=== PATIENT | female | born 1980 | race Two or more races ===

== ENCOUNTER 2024-04-20 11:13 | Emergency (ER) | payer OTHER ==
[~2024-04-20] VITALS: Ht 162.6 cm; Wt 70.8 kg
[2024-04-20] MEDS ORDERED: POVIDONE-IODINE 3 EA MED..SWAB TOP ONE (13:45)
[2024-04-20] MEDS ORDERED: LIDOCAINE HCL 1% 2ML VIAL IJ ONE (13:45)
[2024-04-20] MEDS ORDERED: TETANUS & DIPHTHERIA TOX,ADULT 0.5 ML VIAL IM ONE (15:15)
== END 2024-04-20 15:12 | disposition home or self-care (01) ==
LOC: ER 11:15
DX: S61.221A Laceration with foreign body of left index finger without damage to nail, initial encounter (principal); W25.XXXA Contact with sharp glass, initial encounter; Y93.F9 Activity, other caregiving; Y92.238 Other place in hospital as the place of occurrence of the external cause